=== PATIENT | male | born 1955 | race Caucasian/White ===

== ENCOUNTER → 2017-06-30 | Outpatient (CLI) | payer BC ==
--- NOTE | 2017-06-30 11:31 | RADIOLOGY REPORT PS360 ---
[id number] (PINKY)-3 VIEWS CLINICAL INDICATION: RT 5TH FINGER INJURY WITH DEFORMITY ORDERING PHYSICIAN: Horace Villanueva MD PATIENT AGE: 62 years COMPARISON: None FINDINGS: No fracture, dislocation, or other significant anomalies IMPRESSION: Negative right fifth finger
== END ==
LOC: RAD 10:59
DX: M79.641 Pain in right hand (principal); M79.644 Pain in right finger(s)